=== PATIENT | female | born 1995 | race Caucasian/White ===

== ENCOUNTER 2017-11-02 19:56 | Emergency (ER) | payer OTHER ==
--- NOTE | 2017-11-02 20:22 | ED Physician Documentation ---
PD HPI CHEST PAIN - Stated complaint Stated Complaint: CP - Chief complaint Chief Complaint: Cardiac - History obtained from History obtained from: Patient - History of Present Illness Timing - onset: Today (Starting at rest around 2:30 PM she developed sharp left- sided chest pain that waxes and wanes but never has gone away. She does not notice that anything makes it worse, specifically deep breathing, motion, or position do not seem to change it. There is no radiation to the back or elsewhere. No recent travel. She is not on estrogen containing control. She doubts the possibility of . No calf pain or pedal edema. No personal or family history of coronary or heart disease.) Review of Systems Constitutional: reports: Reviewed and negative Throat: reports: Reviewed and negative Cardiac: reports: Chest pain / pressure. denies: Palpitations Respiratory: denies: Dyspnea, Cough PD PAST MEDICAL HISTORY - Allergies Allergies/Adverse Reactions: Allergies Allergy/AdvReac Type Severity Reaction Status Date / Time amoxicillin AdvReac Rash Verified 11/02/17 20:11 Penicillins AdvReac Rash Verified 11/02/17 20:11 PD ED PE NORMAL - Vitals Vital signs reviewed: Yes - General General: Alert and oriented X 3, No acute distress - HEENT HEENT: Pharynx benign - Neck Neck: Supple, no meningeal sign, No bony TTP - Cardiac Cardiac: RRR, No murmur - Respiratory Respiratory: No respiratory distress, Clear bilaterally, Other (Mild tenderness to the left upper chest wall which reproduces her pain.) - Abdomen Abdomen: Non tender - Extremities Extremities: No edema, No calf tenderness / cord - Neuro Neuro: Alert and oriented X 3, Normal speech Results - Vitals Vitals: Vital Signs - 24 hr 11/02/17 11/02/17 11/02/17 20:07 20:40 21:39 Temperature 36.6 C Heart Rate 65 80 81 Respiratory 17 17 15 Rate Blood Pressure 141/86 H 127/93 H O2 Saturation 100 98 98 Oxygen O2 Source Room air - EKG (time done) 2006 Rate: Rate (enter#) (72) Rhythm: NSR [place]: Normal Intervals: Normal NC QRS: Normal Ischemia: Normal ST segments Computer interpretation: Disagree with computer (computer reads afib which it is not.) - Labs Labs: Laboratory Tests 11/02/17 20:35 Troponin I < 0.04 - Rads (name of study) 2v chest' Radiology: EMP read contemporaneously (normal) PD MEDICAL DECISION MAKING - ED course ED course: HEART score zero I considered pulmonary embolism in this patient. Clinically the pretest probability of pulmonary embolism is less than 15%. I applied to the PERC rules as follows: The patient's age is under 50, heart rate less than 100, oxygen saturation greater than 94%, the patient does not have a history of DVT or PE. Patient has no recent trauma or surgery. The patient has no hemoptysis. The patient is not on exogenous estrogens. The patient does not have clinical signs suggesting DVT. As such the patient ruled out for pulmonary embolism by PERC criteria. - Sepsis Event Vital Signs: Vital Signs - 24 hr 11/02/17 11/02/17 11/02/17 20:07 20:40 21:39 Temperature 36.6 C Heart Rate 65 80 81 Respiratory 17 17 15 Rate Blood Pressure 141/86 H 127/93 H O2 Saturation 100 98 98 Oxygen O2 Source Room air Departure - Departure Disposition: 01 Home, Self Care Clinical Impression: Chest pain Qualifiers: Chest pain type: unspecified Qualified Code(s): R07.9 - Chest pain, unspecified Condition: Good Record reviewed to determine appropriate education?: Yes Instructions: ED Chest Pain NonCardiac Comments: Call your doctor to arrange a follow-up appointment, make the next available appointment. In the interim, return anytime if worse or if new symptoms develop. Discharge Date/Time: 11/02/17 21:58
--- NOTE | 2017-11-02 21:25 | XRAY Report ---
Reason: L chest pain Procedure Date: 11/02/2017 Accession Number: [id number] / [id number] Procedure: XR - Chest 2 View X-Ray CPT Code: 49026 FULL RESULT: EXAM: CHEST RADIOGRAPHY. EXAM DATE: 11/02/2017 08:34 PM. CLINICAL HISTORY: Left-sided chest pain for 1 day. No precipitating injury. COMPARISON: None. TECHNIQUE: 2 views. FINDINGS: Lungs/Pleura: No focal opacities evident. No pleural effusion. No pneumothorax. Normal volumes. Mediastinum: Heart and mediastinal contours are unremarkable. Other: None. IMPRESSION: Normal 2-view chest radiography. RADIA
[2017-11-02 21:40] VITALS: BP 127/93
== END 2017-11-02 21:58 | disposition home or self-care (01) ==
LOC: ED 19:56
DX: R07.9 Chest pain, unspecified (principal)
CPT/HCPCS: 36415; 71046; 84484; 93005; 99282; 99283

== ENCOUNTER 2018-11-26 22:09 | Emergency (ER) | payer OTHER ==
[2018-11-26] MEDS ORDERED: SODIUM CHLORIDE 0.9% 1,000 ML IV ONE ×2 (22:45→23:00)
[2018-11-26] MEDS ORDERED: KETOROLAC 15 MG/ML VIAL IVP STA (23:00)
[2018-11-26] MEDS ORDERED: ACETAMINOPHEN 1,000 MG/100 ML 100 ML IV STA (23:00)
[2018-11-26 23:10] LABS: BASOPHILS # (AUTO) 0.1 10^3/uL (0.0-0.1); BASOPHILS % (AUTO) 0.4 %; EOSINOPHILS # (AUTO) 0.3 10^3/uL (0.0-0.7); EOSINOPHILS % (AUTO) 2.4 %; HGB - HEMOGLOBIN 8.4 g/dL (12.0-16.0); LYMPHOCYTES # (AUTO) 1.5 10^3/uL (1.5-3.5); LYMPHOCYTES % (AUTO) 11.1 %; MEAN CORPUSCULAR HEMOGLOBIN 20.4 pg (27.0-31.0); MEAN CORPUSCULAR HGB CONC 29.7 g/dL (32.0-36.0); MEAN CORPUSCULAR VOLUME 68.7 fL (81.0-99.0); MEAN PLATELET VOLUME 9.5 fL (7.9-10.8); MONOCYTES # (AUTO) 0.6 10^3/uL (0.0-1.0); MONOCYTES % (AUTO) 4.7 %; NEUTROPHILS # (AUTO) 10.9 10^3/uL (1.5-6.6); NEUTROPHILS % (AUTO) 79.1 %; PLT - PLATELET COUNT 330 10^3/uL (130-450); RED BLOOD COUNT 4.12 10^6/uL (4.20-5.40); RED CELL DISTRIBUTION WIDTH 17.9 % (12.0-15.0); WHITE BLOOD COUNT 13.7 x10^3/uL (4.8-10.8)
[2018-11-26] MEDS ORDERED: GENTAMICIN IV STA (23:11)
[2018-11-26] MEDS ORDERED: cefOXitin 1 GM in SODIUM CHLORIDE 0.9% MINIBAG 100 ML IV STA (23:11)
[2018-11-26] MEDS ORDERED: SODIUM CHLORIDE 0.9% IV STA (23:11)
[2018-11-26 23:20] LABS: ALBUMIN 3.1 g/dL (3.2-5.5); ALBUMIN/GLOBULIN RATIO 0.8 (1.0-2.2); BILIRUBIN,TOTAL 0.6 mg/dL (0.2-1.0); CALCIUM 8.8 mg/dL (8.5-10.3); CREATININE 0.8 mg/dL (0.4-1.0); MAGNESIUM 1.7 mg/dL (1.7-2.8); TOTAL PROTEIN 7.1 g/dL (6.7-8.2)
[2018-11-26 23:37] LABS: PLATELET ESTIMATE, MANUAL NORMAL (130-450,000) (NORMAL)
[2018-11-26] MEDS ORDERED: cefTRIAXone 1 GM VIAL IVP STA (23:57)
[2018-11-27 00:44] LABS: BILIRUBIN,URINE NEGATIVE (NEGATIVE); GLUCOSE, URINE (UA) NEGATIVE (NEGATIVE); KETONES,URINE (UA) NEGATIVE (NEGATIVE); LEUKOCYTE ESTERASE, URINE SMALL (NEGATIVE); NITRITE,URINE NEGATIVE (NEGATIVE); OCCULT BLOOD,URINE LARGE (NEGATIVE); PROTEIN,URINE NEGATIVE (NEGATIVE); UROBILINOGEN,URINE 0.2 (NORMAL) E.U./dL (NORMAL)
[2018-11-27 00:47] LABS: CLARITY,URINE CLEAR (CLEAR)
[2018-11-27 00:50] LABS: SQUAMOUS EPITHELIAL CELL,UR FEW Squamous (<= Few)
[2018-11-27 00:51] LABS: BACTERIA,URINE Few /HPF (None Seen)
--- NOTE | 2018-11-27 01:41 | Ultrasound Report ---
Reason: post fever and lower abd pain Procedure Date: 11/27/2018 Accession Number: [id number] / [id number] Procedure: US - Pelvic w/Doppler Limited CPT Code: FULL RESULT: EXAM: PELVIC ULTRASOUND EXAM DATE: 11/27/2018 01:14 AM. CLINICAL HISTORY: Post fever and lower abd pain. COMPARISON: None. TECHNIQUE: Realtime transabdominal pelvic scan performed to identify the uterus and adnexa and as an overview of other pelvic structures, followed by transvaginal scan to provide greater detail of the uterus and adnexa, with static image documentation. FINDINGS: Uterus: 15.4 x 8.5 x 12.2 cm, volume 838 cc. Anteverted position. Normal overall size and echotexture. Masses: None. Endometrium: Heterogeneous endometrium with a focus of echogenic debris measuring 3 x 1.2 cm which does not demonstrate hypervascularity to suggest retained products of conception. Cervix: Unremarkable. Right Ovary: 3.1 x 2.4 x 3.9 cm, volume 15 cc. Normal echotexture and blood flow. Left Ovary: 3 x 2.7 x 2.9 cm, volume 12 cc. Normal echotexture and blood flow. Free Fluid: None. Other: None. IMPRESSION: 1. Enlarged uterus. 2. Heterogeneous endometrium with a focus of echogenic debris measuring 3 x 1.2 cm which does not demonstrate hypervascularity to suggest retained products of conception. RADIA
--- NOTE | 2018-11-27 02:50 | ED Physician Documentation ---
PD HPI FEMALE - Stated complaint Stated Complaint: CHILLS/FEVER - Chief complaint Chief Complaint: Neuro - History obtained from History obtained from: Patient - History of Present Illness Timing - onset: How many hours ago (few), Today Timing - duration: Hours Timing - details: Abrupt onset (The patient is 6 days G1, P1 with an abrupt onset of fever chills and some nausea this evening. She had been doing okay postdelivery without any obvious infection. She then developed a fever up to 39.4 and a fast heart rate and feeling generally weak just this evening. She has not had any head cold symptoms. She has been having ongoing vaginal bleeding as expected. She has breast engorgement with some general tenderness but does not does not feel particularly excessively tender.) Associated symptoms: Fever, Pelvic pain, Vaginal bleeding, Other (no URI symptoms). 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 She did have a epidural but does not have any redness or tenderness at the site of the epidural. She had been having vaginal bleeding as expected without any noted discharge. She had a tear with the delivery which was sutured and is locally tender but improving. She has not had any dysuria.) Similar symptoms before: Has not had sx before Recently seen: Admitted (As noted above, she is 6 days with rupture of membranes 2 days prior to that without any noted complications except for a bad vaginal tear that was sutured.) Review of Systems Constitutional: reports: Fever, Chills, Myalgias Nose: denies: Rhinorrhea / runny nose, Congestion Throat: denies: Sore throat Respiratory: denies: Cough GI: reports: Abdominal Pain (has had some lower abd/pelvic pains since delivery. Not really increased. Has had breast tenderness when engorged, and right breast was more tender 2 days ago, but improved.). 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: None : None HEENT: None Psych: Panic attacks Musculoskeletal: None Derm: None - Past Surgical History Past Surgical History: No - Present Medications Home Medications: Ambulatory Orders Medication Instructions Recorded Confirmed Ferrous Sulfate 1 tab PO DAILY 11/26/18 11/26/18 Ibuprofen [Motrin] 1 tab PO Q8HR PRN 11/26/18 11/26/18 Clindamycin HCl 600 mg PO QID 7 Days #56 capsule 11/27/18 Ondansetron Odt [Zofran] 4 mg TL Q6H PRN #20 tablet 11/27/18 - Allergies Allergies/Adverse Reactions: Allergies Allergy/AdvReac Type Severity Reaction Status Date / Time amoxicillin AdvReac Rash Verified 11/26/18 22:13 Penicillins AdvReac Rash Verified 11/26/18 22:13 - Social History Does the pt smoke?: No Smoking Status: Never smoker Does the pt drink ETOH?: No Does the pt have substance abuse?: No - Immunizations Immunizations are current?: Yes - POLST Patient has POLST: No PD ED PE NORMAL - Vitals Vital signs reviewed: Yes (Fever and tachycardia. Normal blood pressure.) - General General: Alert and oriented X 3, No acute distress, Well developed/nourished - HEENT HEENT: Ears normal, Pharynx benign - Neck Neck: Supple, no meningeal sign, No adenopathy - Cardiac Cardiac: No murmur. No: RRR (fast but regular heart rate) - Respiratory Respiratory: Clear bilaterally - Abdomen Abdomen: Normal bowel sounds, Soft, Non distended, No organomegaly, Other (Some tenderness in the suprapubic area with some mild local guarding but no percussion or rebound tenderness.) - Female Female : Trim Sawyer present, Other (The labial tear sutured appears healing without any signs of local infection or purulence. The cervical loss has some bleeding which is slightly watery. It does not look obviously purulent. There is some tenderness to the cervix and uterus mildly. It feels moderately enla rged.) - Back Back: No CVA TTP - Derm Derm: Normal color, Warm and dry - Extremities Extremities: No deformity, No tenderness to palpate, No edema, No calf tenderness / cord - Neuro Neuro: Alert and oriented X 3, No motor deficit, Normal speech Results - Vitals Vitals: Vital Signs - 24 hr 11/26/18 11/26/18 11/26/18 22:13 22:53 23:33 Temperature 39.4 C H 37.6 C H Heart Rate 169 H 137 H 126 H Respiratory 18 16 31 H Rate Blood Pressure 165/94 H 150/84 H 125/71 O2 Saturation 97 98 98 11/27/18 11/27/18 11/27/18 00:16 00:40 00:50 Temperature 37.2 C 37.2 C Heart Rate 120 H 115 H 118 H Respiratory 19 31 H 32 H Rate Blood Pressure 133/72 H 133/72 H 119/73 O2 Saturation 98 97 97 11/27/18 11/27/18 11/27/18 01:00 01:15 01:30 Temperature Heart Rate 107 H 111 H 101 H Respiratory 24 26 H 29 H Rate Blood Pressure 129/78 129/78 134/77 H O2 Saturation 97 96 97 11/27/18 11/27/18 11/27/18 02:00 02:27 03:24 Temperature 37.3 C 37.3 C Heart Rate 116 H 102 H 103 H Respiratory 18 31 H 20 Rate Blood Pressure 140/88 H 140/88 H 116/80 O2 Saturation 98 97 98 11/27/18 04:13 Temperature 37.1 C Heart Rate 100 Respiratory 19 Rate Blood Pressure 125/88 H O2 Saturation 100 Oxygen O2 Source Room air - Labs Labs: Laboratory Tests 11/26/18 11/26/18 11/26/18 22:20 22:20 22:20 WBC 13.7 H RBC 4.12 L Hgb 8.4 L Hct 28.3 L MCV 68.7 L MCH 20.4 L MCHC 29.7 L RDW 17.9 H Plt Count 330 MPV 9.5 Neut # (Auto) 10.9 H Lymph # (Auto) 1.5 [place] # (Auto) 0.6 Eos # (Auto) 0.3 Baso # (Auto) 0.1 Absolute Nucleated RBC 0.03 Nucleated RBC % 0.2 Manual Slide Review Indicated Platelet Estimate NORMAL (130-450,000) RBC Morph Micro Appear 1+ POLYCHROMASIA Sodium 139 Potassium 4.0 Chloride 107 Carbon Dioxide 21 Anion Gap 11.0 BUN 14 Creatinine 0.8 Estimated GFR (MDRD) 88 L Glucose 105 H Lactic Acid 1.9 Calcium 8.8 Magnesium 1.7 Total Bilirubin 0.6 AST 19 ALT 20 Alkaline Phosphatase 112 Total Protein 7.1 Albumin 3.1 L Globulin 4.0 Albumin/Globulin Ratio 0.8 L Lipase 50 HCG, Quant Urine Color Urine Clarity Urine pH Ur Specific [place] Urine Protein Urine Glucose (UA) Urine Ketones Urine Occult Blood Urine Nitrite Urine Bilirubin Urine Urobilinogen Ur Leukocyte Esterase Urine RBC Urine WBC Ur Squamous Epith Cells Urine Bacteria Ur Microscopic Review Urine Culture Comments Influenza A (Rapid) Influenza B (Rapid) 11/26/18 11/26/18 11/27/18 22:20 23:15 00:30 WBC RBC Hgb Hct MCV MCH MCHC RDW Plt Count MPV Neut # (Auto) Lymph # (Auto) [place] # (Auto) Eos # (Auto) Baso # (Auto) Absolute Nucleated RBC Nucleated RBC % Manual Slide Review Platelet Estimate RBC Morph Micro Appear Sodium Potassium Chloride Carbon Dioxide Anion Gap BUN Creatinine Estimated GFR (MDRD) Glucose Lactic Acid Calcium Magnesium Total Bilirubin AST ALT Alkaline Phosphatase Total Protein Albumin Globulin Albumin/Globulin Ratio Lipase HCG, Quant 100.60 Urine Color YELLOW Urine Clarity CLEAR Urine pH 7.0 Ur Specific [place] <=1.005 Urine Protein NEGATIVE Urine Glucose (UA) NEGATIVE Urine Ketones NEGATIVE Urine Occult Blood LARGE H Urine Nitrite NEGATIVE Urine Bilirubin NEGATIVE Urine Urobilinogen 0.2 (NORMAL) Ur Leukocyte Esterase SMALL H Urine RBC 6-10 H Urine WBC 6-10 H Ur Squamous Epith Cells FEW Squamous Urine Bacteria Few Ur Microscopic Review INDICATED Urine Culture Comments INDICATED Influenza A (Rapid) Negative Influenza B (Rapid) Negative PD MEDICAL DECISION MAKING - ED course Complexity details: reviewed results, re-evaluated patient (she is feeling better with temp down, but still tachycardic. ), considered differential (The fever is improved but the heart rate is still tachycardic after IV fluids. She was started on IV antibiotics presuming endometritis. Clinically it is hard to attribute it to mastitis as she just feels engorged without any focal tenderness or redness. There is some tenderness in the suprapubic area and the ultrasound does show enlargement of the uterus which is not unreasonable . There was some non-echogenic or correction echogenic but nonvascular material in the uterus on ultrasound but the expeditionary fighting vehicle crewman did not feel it was retained products. Given the concern for endometritis, I did talk with gynecology on- call and Dr. Zaman will come in to see the patient to decide between inpatient or outpatient treatment.), d/w patient, d/w proposal consultant (SOFT WORK WRAPPER LAYER AND EXAMINER came to ER and examined patient, and felt she is okay for home treatment with abx recommended, which I prescribed. ) Departure - Departure Disposition: Home, Self Care Clinical Impression: fever, Acute endometritis Condition: Stable Record reviewed to determine appropriate education?: Yes Instructions: ED Endometritis Obstetric Prescriptions: Clindamycin HCl 600 mg PO QID 7 Days #56 capsule Ondansetron Odt [Zofran] 4 mg TL Q6H PRN #20 tablet PRN Reason: Nausea / Vomiting Comments: Tylenol every 4 hours if needed for fevers and pains. The cupola charger recommendation is clindamycin 600 mg 4 times a day for a week. Its okay to continue breast-feeding. Use ondansetron if needed for nausea as the antibiot ics sometimes will upset the stomach. Follow-up with your [facility] NURSE on Thursday for recheck. Return in the next couple of days if you are having worse symptoms, persistently high fevers, increased pain or other concerns. Stay well-hydrated. Discharge Date/Time: 11/27/18 04:14
[2018-11-27 04:14] VITALS: BP 125/88
--- NOTE | 2018-11-27 05:29 | CONSULTATION NOTE ---
Referring Provider Name of Referring Provider:: Dr. Alvarado Consult Date: 11/27/18 Chief Complaint - Chief Complaint Chief Complaint: febrile temperature History of Present Illness - Admitted From Admitted From:: home - History Obtained From History obtained from: patient - History of Present Illness HPI Comment/Other: Patient is a 23-year-old G1, P1 now 6 days status post . Kalia is a patient of the [facility] and delivered at this outside facility. She reports that one week ago, she underwent spontaneous rupture of membranes and was admitted for labor. Per her report, she had an uncomplicated vaginal delivery and what was reportedly a second-degree laceration repair. With the and delivery were reported to be uncomplicated. She is currently breast-feeding. Late on the evening of 11/26/2018, she started developing myalgias and chills. She experienced general "flulike symptoms". She reported that initially her temperature was within normal limits and then climbed to 100.3. She does not have any breast pain other than general engorgement. She does not note any abdominal pain. No areas of redness/warmth/induration on her breast other than that attributed to engorgement. The engorgement is reportedly bilateral. No foul discharge. No nausea or vomiting. No perineal pain. No MARTINEZ/vision change/abdominal pain/N/V. At presentation her temperature was as high as 39 C and she been tachycardic to the 120s. She had had a pelvic ultrasound that showed an enlarged uterus with changes consistent with normal uterine findings. At the time of this exam, patient had already received IV Toradol and Tylenol. She also received a dose of gentamicin and Rocephin. History - Past Medical History Cardiovascular: reports: None Respiratory: reports: None Neuro: reports: None Endocrine/Autoimmune: reports: None GI: reports: None COUPLES THERAPIST: reports: None : reports: None HEENT: reports: None Psych: reports: Panic attacks Musculoskeletal: reports: None Derm: reports: None MRSA Hx?: No - POLST Patient has POLST: No Meds/Allgy - Home Medications Home Medications: Ambulatory Orders Medication Instructions Recorded Confirmed Ferrous Sulfate 1 tab PO DAILY 11/26/18 11/26/18 Ibuprofen [Motrin] 1 tab PO Q8HR PRN 11/26/18 11/26/18 Clindamycin HCl 600 mg PO QID 7 Days #56 capsule 11/27/18 Ondansetron Odt [Zofran] 4 mg TL Q6H PRN #20 tablet 11/27/18 - Allergies Allergies/Adverse Reactions: Allergies Allergy/AdvReac Type Severity Reaction Status Date / Time amoxicillin AdvReac Rash Verified 11/26/18 22:13 Penicillins AdvReac Rash Verified 11/26/18 22:13 Review of Systems - Other Findings Other Findings: As per HPI, remaining systems are negative. Exam - Vital Signs Vital Signs: Vital Signs x48h Temp Pulse Resp BP Pulse Ox 11/27/18 04:13 98.7 F 100 19 125/88 H 100 11/27/18 03:24 99.1 F 103 H 20 116/80 98 11/27/18 02:27 99.1 F 102 H 31 H 140/88 H 97 11/27/18 02:00 116 H 18 140/88 H 98 11/27/18 01:30 101 H 29 H 134/77 H 97 11/27/18 01:15 111 H 26 H 129/78 96 11/27/18 01:00 107 H 24 129/78 97 11/27/18 00:50 99.0 F 118 H 32 H 119/73 97 11/27/18 00:40 115 H 31 H 133/72 H 97 11/27/18 00:16 98.9 F 120 H 19 133/72 H 98 11/26/18 23:33 99.7 F H 126 H 31 H 125/71 98 11/26/18 22:53 137 H 16 150/84 H 98 11/26/18 22:13 102.9 F H 169 H 18 165/94 H 97 - Physical Exam General Appearance: positive: No acute distress Eyes Bilateral: positive: Normal inspection Respiratory: positive: Chest non-tender, No respiratory distress Cardiovascular: positive: Other (Tachycardic at presentation. Mildly tachycardic to regular rate at time of exam) Peripheral Pulses: positive: 1+ Abdomen: positive: Non-tender, No distention, Other (uterus firm bleow the umbilicus. No suprapubic tenderness) Skin: positive: Color nml Extremities: positive: Non-tender Neurologic/Psychiatric: positive: Oriented x3 Comments/Other: Pelvic exam was reportedly wnl per ED attending. Given lack of symptoms, other ornelas benign abdomino-pelvic exam, and recency of pelvic exam, it was nto repeated at this assessment. BREAST: Bilateral breast engorgement more than 5 hours after last feed. No area of induration other than that attributed to engorgement. No erythema/warmth,TTP or fluctuance. Niple are pink and wihtout craxks or fissures. Conclusion/Plan - Diagnosis Diagnosis: fever - Plan Plan: Unclear etiology to febrile temperature. Transient increase in temperature common with start of laction but febrile temp was accompanied by tachycardia and myalgias -No abdominal pain/perinela/or breast pain other than that attributed to engorgement -WBC elevated but appropriate for recency of state -Tachycardic at presentation but intermittently normal/mildly tachycardic at time of exam -Benign abdomino-pelvic and breast exam Reviewed concerns for possible endometritis vs mastitis with patient. Endometritis requires in patient admission with parenteral abx until afebrile an d without tacychardia/abdominal tenderness for 24 hours. -Currently has benign exam, normal temp, and only mildly elevated heart rate Mastitis is treated on an outpatient basis with dicloxacillin. Patient has allergy to penicillin. Review of the literature indicates that cure rates for endometritis have been obtain in low resource setting with gentamicin 5 mg/kg Q24 hour dosing and oral clindamycin 600 mg Q6H Clindamycin is also a recommended option for management of mastitis among women with PCN allergies. Given the ambiguity of her presentation and resolution of her febrile temp/symp toms/ and severe tachycardia, will provide rx for clindamcyin 600 mg po Q6H for 10 days. Has received a dose of gentamicin in the ED. Warning signs were reviewed. Import of returning to ED for worsening pain, fever, return of symptoms was discussed. Recommend outpatient treament with clindamcyin and dischare to home with follow- up with primary OB early next week. Thank you for including me in the care of this patient. - Lab Results Fish Bones: 11/26/18 22:20 11/26/18 22:20 - Diagnostic Imaging Results Diagnostic Imaging Results: positive: Final report reviewed Diagnostic Imaging Results Comments: Normal findings for recently uterus
== END 2018-11-27 04:14 | disposition home or self-care (01) ==
LOC: ED 22:09
DX: O86.12 Endometritis following delivery (principal); O92.79 Other disorders of lactation
CPT/HCPCS: 36415; 76856; 80053; 81001; 83605; 83690; 83735; 84702; 85025; 87070; 87086; 87181; 87205; 87275; 87276; 93976; 96365; 96368; 96375; 99283; 99284; J0131; J1580; 81003